=== PATIENT | female | born 1950 | race Caucasian/White ===

== ENCOUNTER 2017-02-01 20:53 | Emergency (ER) | payer OTHER ==
[~2017-02-01] VITALS: Ht 160 cm; Wt 112.5 kg
[~2017-02-01 20:53] MED LIST: AMLO2.5T78 PO; ASPI325T4 PO; BENA5TAB2 PO; HYDR-762 PO; HYDR12.58 PO; NITR-58 PO; ONDA4TAB35 PO; PHEN-538 PO
[2017-02-01 20:59] VITALS: Ht 160 cm; Wt 112.5 kg
--- NOTE | 2017-02-02 00:15 | ERD ---
ER Documentation Chief Complaint Date/Time DATE: 02/02/17 TIME: 00:13 Chief Complaint BLE swelling, pain and redness for a month HPI 66-year-old female presents here in emergency department for complaint of bilateral lower leg swelling and redness for 1 month now, worsening today, patient has been having pain throbbing pain, 6/10 scale, is accompanying the swelling and the redness. Patient denies any fever or chills. Patient denies any trauma on affected area. ROS All systems reviewed and are negative except as per history of present illness. Medications Home Meds Active Scripts Phenazopyridine Hcl* (Pyridium*) 200 Mg Tab, 200 MG PO TID Y for URINARY PAIN, # 6 TAB Prov:WALDO SORENSON NP 05/31/16 Nitrofurantoin Monohyd Macrocr* (Macrobid*) 100 Mg Capsr, 100 MG PO BID for 7 Days, CAP Prov:WALDO SORENSON NP 05/31/16 Ondansetron Hcl* (Zofran* ODT) 4 mg -ODT Tab.disper, 4 MG PO Q6 Y for NAUSEA AND /OR VOMITING, #30 TAB Prov:OMER BRYAN MD 09/09/15 Hydrocodone Bit-Acetaminophen* ([place]*) 10-325 Mg Tablet, 1 TAB PO Q4H Y for PAIN, #12 TAB Prov:OMER BRYAN MD 09/09/15 Reported Medications Benazepril Hcl* (Benazepril Hcl*) Unknown Strength Tablet, PO DAILY, #30 TAB 05/31/16 Hydrochlorothiazide* (Hydrochlorothiazide*) Unknown Strength Tablet, PO DAILY, # 30 TAB 05/31/16 Amlodipine Besylate* (Amlodipine Besylate*) Unknown Strength Tablet, PO DAILY, # 30 TAB 05/31/16 Aspirin* (Aspirin*) Unknown Strength Tablet, PO BID, TAB 05/31/16 Allergies Allergies: Coded Allergies: Penicillins (Verified Allergy, Unknown, 05/31/16) ciprofloxacin (Verified Allergy, Unknown, RASH, 05/31/16) Uncoded Allergies: PENICILLIN (Allergy, Unknown, HIVES RASH, 10/20/13) PMhx/Soc History of Surgery: No Anesthesia Reaction: No Hx Neurological Disorder: No Hx Respiratory Disorders: No Hx Cardiac Disorders: Yes (HTN) Hx Psychiatric Problems: No Hx Miscellaneous Medical Probl: No Hx Alcohol Use: No Hx Substance Use: No Hx Tobacco Use: No FmHx Family History: No coronary disease, No diabetes, No other Physical Exam Vitals Vital Signs Date Time Temp Pulse Resp B/P Pulse Ox O2 Delivery O2 Flow Rate FiO2 02/01/17 20:59 98.4 79 20 150/66 97 Physical Exam GENERAL: The patient is well developed and appropriate for usual state of health, in no apparent distress. CHEST: Clear to auscultation bilaterally. There are no rales, wheezes or rhonchi. HEART: Regular rate and rhythm. No murmurs, clicks, rubs or gallops. No S3 or S4. ABDOMEN: Soft, nontender and nondistended. Good bowel sounds. No rebound or guarding. No gross peritonitis. No gross organomegaly or masses. No Simms sign or McBurney point tenderness. BACK: No midline or flank tenderness. EXTREMITIES: bilateral lower leg noted to be erythematous injury noted swelling , + 2 pitting edema noted.Equal pulses bilaterally. Full range of motion. Grossly neurovascularly intact. NEURO: Alert and oriented. Cranial nerves 2-12 intact. Motor strength in all 4 extremities with 5/5 strength. Sensation grossly intact. Normal speech and gait. SKIN: There is no apparent rash or petechia. The skin is warm and dry. HEMATOLOGIC AND LYMPHATIC: There is no evidence of excessive bruising or lymphedema. No gross cervical, axillary, or inguinal lymphadenopathy. Result Diagram: 02/02/17 0020 02/02/17 0020 Results 24 hrs Laboratory Tests Test 02/02/17 00:20 White Blood Count 5.410^3/ul Red Blood Count 4.7010^6/ul Hemoglobin 13.1g/dl Hematocrit 40.7% Mean Corpuscular Volume 86.6fl Mean Corpuscular Hemoglobin 27.9pg Mean Corpuscular Hemoglobin Concent 32.2g/dl Red Cell Distribution Width 13.6% Platelet Count 25142^3/UL Mean Platelet Volume 9.3fl Neutrophils % 53.7% Lymphocytes % 32.3% Monocytes % 9.0% Eosinophils % 4.1% Basophils % 0.7% Nucleated Red Blood Cells % 0.0/100WBC Neutrophils # (Manual) 2.910^3/ul Lymphocytes # 1.710^3/ul Monocytes # 0.510^3/ul Eosinophils # 0.210^3/ul Basophils # 0.010^3/ul Nucleated Red Blood Cells # 0.010^3/ul Urine Color YELLOW Urine Clarity SLIGHTLY CLOUDY Urine pH 6.0 Urine Specific Era 1.020 Urine Ketones NEGATIVEmg/dL Urine Nitrite NEGATIVEmg/dL Urine Bilirubin NEGATIVEmg/dL Urine Urobilinogen NEGATIVEmg/dL Urine Leukocyte Esterase NEGATIVELeu/ul Urine Microscopic RBC 2/HPF Urine Microscopic WBC 3/HPF Urine Squamous Epithelial Cells FEW/HPF Urine Hemoglobin 1+mg/dL Urine Glucose NEGATIVEmg/dL Urine Total Protein NEGATIVEmg/dl Sodium Level 138mmol/L Potassium Level 3.5mmol/L Chloride Level 102mmol/L Carbon Dioxide Level 28mmol/L Anion Gap 12 Blood Urea Nitrogen 17mg/dl Creatinine 0.68mg/dl Glucose Level 93mg/dl Calcium Level 9.8mg/dl Total Bilirubin 0.2mg/dl Direct Bilirubin 0.00mg/dl Indirect Bilirubin 0.2mg/dl Aspartate Amino Transf (AST/SGOT) 25IU/L Alanine Aminotransferase (ALT/SGPT) 34IU/L Alkaline Phosphatase 72IU/L B-Type Natriuretic Peptide 61PG/ML Total Protein 7.7g/dl Albumin 4.2g/dl Globulin 3.50g/dl Albumin/Globulin Ratio 1.20 PROCEDURE: Ultrasound of the bilateral lower extremity venous system. CLINICAL INDICATION: Bilateral leg pain and swelling, deep venous thrombosis TECHNIQUE: Roberts scale with and without compression, color doppler, spectral doppler of the venous system of the bilateral lower extremities was performed. Venous augmentation maneuvers were utilized. COMPARISON: No prior studies are available for comparison. FINDINGS: RIGHT: Common femoral vein: Patent. Femoral vein: Patent. Popliteal vein: Patent. Calf veins: Patent. No soft tissue abnormalities are identified. LEFT: Common femoral vein: Patent. Femoral vein: Patent. Popliteal vein: Patent. Calf veins: Patent. No soft tissue abnormalities are identified. IMPRESSION: No evidence of a deep vein thrombosis within the bilateral lower extremities. RPTAT: AADD .Salvador Talley MD, MD Date Time Electronically viewed and signed by .Salvador Talley MD, on 02/02/2017 01:44 .B/ CC: WALDO SORENSON [employer] DEVELOPER PROCEDURE: XR Chest. CLINICAL INDICATION: Leg swelling. Chest pain. TECHNIQUE: Single frontal view of the chest. COMPARISON: None. FINDINGS: Cardiomegaly with atherosclerotic calcifications in the thoracic aorta. Mild elevation of the right hemidiaphragm. Pulmonary vascular crowding is seen with accentuated pulmonary vascular markings secondary to patient body habitus, hypoinflated lungs and portable technique. No signs of pleural fluid or pneumothorax are seen. The osseous structures and soft tissues are unremarkable. IMPRESSION: No evidence for active cardiopulmonary disease. RPTAT: [facility] Physician Aiyana Date Time Electronically viewed and signed by Physician Aiyana on 02/02/2017 01:49 RS/ CC: WALDO SORENSON [employer]LECT[employer] DEVELOPER Procedures/MDM Medical Decision Making: Patient's pain and swelling most likely consistent with an dependent edema with possibly cellulitis early. No symptoms of sepsis at this time. No DVT noted in the ultrasound. Low suspicion for any fluid overload, kidney function tests are normal. No ascites noted. No congestive heart failure noted.There is no suspicion for neurovascular compromise. Patient has intact sensation and circulation of the affected extremity. There is low suspicion for septic arthritis. Patient does not have any fever. Disposition: Home. Patient is given prescription for ibuprofen for pain, clindamycin for possible early cellulitis. Patient was advised to elevate the affected area and apply ice on affected area. Patient was advised that if symptoms are worse, numbness, tingling, high fever, unable to move joint, worsening symptoms, to return to emergency department immediately. Otherwise, patient is advised to follow up with the primary care doctor in 5-7 days for reevaluation of symptoms. Departure Diagnosis: Primary Impression: Leg swelling Condition: Stable Patient Instructions: Peripheral Edema, Bilateral Additional Instructions: Patient is given prescription for ibuprofen for pain, clindamycin for possible early cellulitis. Patient was advised to elevate the affected area and apply ice on affected area. Patient was advised that if symptoms are worse, numbness , tingling, high fever, unable to move joint, worsening symptoms, to return to emergency department immediately. Otherwise, patient is advised to follow up with the primary care doctor in 5-7 days for reevaluation of symptoms. WALDO SORENSON NP Feb 02, 2017 00:15
[2017-02-02 00:49] LABS: BASOPHILS % 0.7 % (0.0-2.0); EOSINOPHILS # 0.2 10^3/ul (0.0-0.5); EOSINOPHILS % 4.1 % (0.0-7.0); HEMATOCRIT 40.7 % (37.0-47.0); HEMOGLOBIN 13.1 g/dl (12.0-16.0); LYMPHOCYTES # 1.7 10^3/ul (0.8-2.9); LYMPHOCYTES % 32.3 % (15.0-51.0); MEAN CORPUSCULAR HEMOGLOBIN 27.9 pg (29.0-33.0); MEAN CORPUSCULAR HGB CONC 32.2 g/dl (32.0-37.0); MEAN CORPUSCULAR VOLUME 86.6 fl (82.0-101.0); MEAN PLATELET VOLUME 9.3 fl (7.4-10.4); MONOCYTE # 0.5 10^3/ul (0.3-0.9); NEUTROPHILS % 53.7 % (39.0-77.0); PLATELET COUNT 275 10^3/UL (140-415); RED CELL DISTRIBUTION WIDTH 13.6 % (11.5-14.5); WHITE BLOOD COUNT 5.4 10^3/ul (4.8-10.8)
[2017-02-02 01:03] LABS: ALBUMIN 4.2 g/dl (3.3-4.9); ALBUMIN/GLOBULIN RATIO 1.2; BILIRUBIN,INDIRECT 0.2 mg/dl (0-1.1); BILIRUBIN,TOTAL 0.2 mg/dl (0.2-1.3); CALCIUM 9.8 mg/dl (8.4-10.2); CREATININE 0.68 mg/dl (0.44-1.00); POTASSIUM 3.5 mmol/L (3.5-5.1); TOTAL PROTEIN 7.7 g/dl (6.1-8.1)
[2017-02-02 01:22] LABS: ADD UMIC YES; UR ASCORBIC ACID NEGATIVE (NEGATIVE); UR BILIRUBIN (Dip) NEGATIVE (NEGATIVE); UR BLOOD (Dip) 1+ mg/dL (NEGATIVE); UR CLARITY SLIGHTLY CLOUDY (CLEAR); UR COLOR YELLOW (YELLOW); UR GLUCOSE (Dip) NEGATIVE (NEGATIVE); UR KETONES (Dip) NEGATIVE (NEGATIVE); UR LEUKOCYTE ESTERASE (Dip) NEGATIVE Leu/ul (NEGATIVE); UR NITRITE (Dip) NEGATIVE (NEGATIVE); UR RBC 2 /HPF (0-5); UR SQUAMOUS EPITHELIAL CELL FEW /HPF (FEW); UR TOTAL PROTEIN (Dip) NEGATIVE (NEGATIVE); UR UROBILINOGEN (Dip) NEGATIVE (NEGATIVE)
--- NOTE | 2017-02-02 01:44 | RADRPT ---
PROCEDURE: Ultrasound of the bilateral lower extremity venous system. CLINICAL INDICATION: Bilateral leg pain and swelling, deep venous thrombosis TECHNIQUE: Roberts scale with and without compression, color doppler, spectral doppler of the venous system of the bilateral lower extremities was performed. Venous augmentation maneuvers were utilized . COMPARISON: No prior studies are available for comparison. FINDINGS: RIGHT: Common femoral vein: Patent. Femoral vein: Patent. Popliteal vein: Patent. Calf veins: Patent. No soft tissue abnormalities are identified. LEFT: Common femoral vein: Patent. Femoral vein: Patent. Popliteal vein: Patent. Calf veins: Patent. No soft tissue abnormalities are identified. IMPRESSION: No evidence of a deep vein thrombosis within the bilateral lower extremities. RPTAT: AADD .Salvador Talley MD, MD Date Time Electronically viewed and signed by .Salvador Talley MD, MD on 02/02/2017 01:44 .B/
--- NOTE | 2017-02-02 01:50 | RADRPT ---
PROCEDURE: XR Chest. CLINICAL INDICATION: Leg swelling. Chest pain. TECHNIQUE: Single frontal view of the chest. COMPARISON: None. FINDINGS: Cardiomegaly with atherosclerotic calcifications in the thoracic aorta. Mild elevation of the right hemidiaphragm. Pulmonary vascular crowding is seen with accentuated pulmonary vascular markings se condary to patient body habitus, hypoinflated lungs and portable technique. No signs of pleural flui d or pneumothorax are seen. The osseous structures and soft tissues are unremarkable. IMPRESSION: No evidence for active cardiopulmonary disease. RPTAT: [facility] Physician Aiyana Date Time Electronically viewed and signed by Physician Aiyana on 02/02/2017 01:49 RS/
[2017-02-02] MEDS ORDERED: CLIN-73 PO (03:25)
[2017-02-02] MEDS ORDERED: IBUP-1542 PO (03:25)
[2017-02-02 03:35] VITALS: BP 135/61; PULSE 71; RESP 18
== END 2017-02-02 03:36 | disposition home or self-care (01) ==
LOC: FTE 20:53
DX: R22.42 Localized swelling, mass and lump, left lower limb (principal); R22.41 Localized swelling, mass and lump, right lower limb; I10 Essential (primary) hypertension; Z79.82 Long term (current) use of aspirin
CPT/HCPCS: 36415; 71010; 80053; 81001; 83880; 85025; 93970; Z7502